=== PATIENT | male | born 1985 | race Caucasian/White ===

== ENCOUNTER 2022-07-13 20:59 | Emergency (ER) | payer BC ==
[~2022-07-13] VITALS: Ht 185.4 cm; Wt 99.8 kg
--- NOTE | 2022-07-13 21:15 | NUR ---
[place]. PANIC ATTACK, HEART RACING AND POUNDING SENSATION IN THROAT. ENDORSES EPISODE HAD STARTED DUE TO WEIGHT LOSS MED. PATIENT IS AAOX4, ANXIOUS, ABLE TO MAKE NEEDS KNOWN. PLACED COMFORTABLY IN BED. TOOK 2ND DOSE OF WEIGHT LOSS MEDICINE. WITH S/E OF PANICKY. VITAL CHECKED. ATTACHED TO MONITOR.
--- NOTE | 2022-07-13 21:48 | NUR ---
ACCUCHECK DONE, BS = 137. AWARE.
--- NOTE | 2022-07-13 23:04 | NUR ---
MORENITA ([facility]) [phone]- GIVEN UPDATE TO GF
--- NOTE | 2022-07-13 23:11 | NUR ---
HEALTH DIRECTOR AT BEDSIDE
[2022-07-14] LABS: BASOPHILS # (AUTO) 0.2 K/uL (0.0-0.2); BASOPHILS % (AUTO) 2.3 % (0.0-2.0); EOSINOPHILS % (AUTO) 1.6 % (0.0-6.0); HEMATOCRIT 48 % (39-51); HEMOGLOBIN 16.5 g/dL (13.5-17.5); LYMPHOCYTES # (AUTO) 2.4 K/uL (0.8-4.8); LYMPHOCYTES % (AUTO) 24.6 % (20.0-44.0); MEAN CORPUSCULAR HGB CONC 35 g/dl (31.0-36.0); MEAN CORPUSCULAR VOLUME 84 fL (80-96); MONOCYTES # (AUTO) 0.6 K/uL (0.1-1.30); MONOCYTES % (AUTO) 5.8 % (2.0-12.0); NEUTROPHILS # (AUTO) 6.4 K/uL (1.8-8.9); NEUTROPHILS % (AUTO) 65.7 % (43.0-81.0); PLATELET COUNT (AUTO) 296 K/uL (150-450); RED BLOOD CELL COUNT(AUTO) 5.67 MIL/uL (4.5-6.0); WHITE BLOOD COUNT (AUTO) 9.7 K/uL (4.3-11.0)
[2022-07-14 00:19] LABS: CALCIUM, SERUM 8.8 mg/dL (8.5-10.1); CREATININE 1.3 mg/dL (0.6-1.3); POTASSIUM 4.1 mmol/L (3.5-5.1)
[2022-07-14 00:55] VITALS: BP 98/112
== END 2022-07-14 00:55 | disposition home or self-care (01) ==
LOC: ER 21:01
DX: R00.2 Palpitations (principal); Z88.5 Allergy status to narcotic agent
CPT/HCPCS: 36415; 80048-TC; 82962-TC; 84484-TC; 85025-TC

== ENCOUNTER 2024-02-08 22:21 | Emergency (ER) | payer BC | END 2024-02-09 00:45 | disposition left against medical advice (07) | LOC: ER 22:34 | DX: R07.89 Other chest pain (principal); M54.9 Dorsalgia, unspecified; Z53.21 Procedure and treatment not carried out due to patient leaving prior to being seen by health care provider ==